=== PATIENT | female | born 1965 | race Caucasian/White ===

== ENCOUNTER 2023-02-24 08:00 | Outpatient (CLI) | payer BC | END 2023-02-24 08:01 | disposition home or self-care (01) | LOC: CSHMAMMO 08:00 | PROVIDERS: ATTEND Family Medicine | DX: Z12.31 Encounter for screening mammogram for malignant neoplasm of breast (principal) | CPT/HCPCS: 77063; 77067 ==

== ENCOUNTER 2023-06-26 09:45 | Outpatient (CLI) | payer BC | END 2023-06-26 09:46 | disposition home or self-care (01) | LOC: CSHMAMMO 09:45 | PROVIDERS: ATTEND Internal Medicine Rheumatology | DX: Z13.820 Encounter for screening for osteoporosis (principal); Z78.0 Asymptomatic menopausal state; M85.88 Other specified disorders of bone density and structure, other site | CPT/HCPCS: 77080 ==

== ENCOUNTER 2024-12-20 07:42 | Outpatient (CLI) | payer BC ==
[2024-12-20] MEDS ORDERED: Iopamidol 300 61% 100 ML VIAL FS ONE (09:50)
== END 2024-12-20 07:43 | disposition home or self-care (01) ==
LOC: CSHCT 07:42
PROVIDERS: ATTEND Family Medicine
DX: R31.0 Gross hematuria (principal); N20.0 Calculus of kidney; N28.9 Disorder of kidney and ureter, unspecified; N32.89 Other specified disorders of bladder; M85.9 Disorder of bone density and structure, unspecified
CPT/HCPCS: 74178